=== PATIENT | male | born 1955 | race Caucasian/White ===

== ENCOUNTER 2016-08-13 10:55 | Emergency (ER) | payer OTHER ==
[~2016-08-13] VITALS: Ht 180.3 cm; Wt 90.7 kg
[2016-08-13 11:04] VITALS: BP 140/83
--- NOTE | 2016-08-13 11:07 | ED CARDIAC/CP/PALPITATIONS ---
History of Present Illness General Chief Complaint: Chest Pain Stated Complaint: CP Source: patient, family, old records Exam Limitations: no limitations Vital Signs & Intake/Output Vital Signs & Intake/Output Vital Signs Date Time Temp Pulse Resp B/P B/P Pulse O2 O2 Flow FiO2 Mean Ox Delivery Rate 08/13 1108 99 Room Air 08/13 1104 97.8 61 15 140/83 98 Room Air Room Air Allergies Coded Allergies: No Known Allergies (08/13/16) Triage Note: PT TO ED FOR DISCOMFORT IN CHEST THAT HAS BEEN INTERMITTENT PRESSURE AND TINGLING IN R CHEST WALL, WORSE TODAY THAN USUAL. ALSO REPORTS R SIDE SINUS ISSUES. DENIES SOB. NO ACUTE DISTRESS NOTED. Triage Nurses Notes Reviewed? yes HPI: Patient presents with intermittent chest pain that is had for the past few days. Patient states that he gets this shocklike sensation just to the right of his sternum that lasts a few seconds and then goes away. He told his about it this morning so she wanted to get him evaluated. Patient denies any radiation. There are no aggravating or mitigating factors. When he has this sensation when he rates it as a 3 out of 10. When it goes away it is a 0 out of 10. Past History Travel History Traveled to [place] past 21 day No Medical History Any Pertinent Medical History? see below for history Gastrointestinal: GERD Musculoskeletal: ARTHRITIS Blood Disorders: NONE Cancer(s): [employer]/Reproductive: NONE Surgical History Surgical History: non-contributory Psychosocial History What is your primary language Telugu Tobacco Use: Quit >30 days ago ETOH Use: occasional use Illicit Drug Use: denies illicit drug use Family History Hx Contributory? No Review of Systems Review of Systems Constitutional: Reports: no symptoms. EENTM: Reports: see HPI, nasal congestion. Respiratory: Reports: no symptoms. Cardiovascular: Reports: see HPI, chest pain. GI: Reports: no symptoms. Genitourinary: Reports: no symptoms. Musculoskeletal: Reports: no symptoms. Skin: Reports: no symptoms. Neurological/Psychological: Reports: no symptoms. Hematologic/Endocrine: Reports: no symptoms. Immunologic/Allergic: Reports: no symptoms. All Other Systems: Reviewed and Negative Physical Exam Physical Exam General Appearance: well developed/nourished, alert, awake, anxious, mild distress Head: atraumatic, normal appearance Eyes: Bilateral: PERRL, EOMI. Ears, Nose, Throat: normal pharynx, normal ENT inspection, hearing grossly normal Neck: normal inspection, supple, full range of motion Respiratory: normal breath sounds, chest non-tender, no respiratory distress, lungs clear Cardiovascular: regular rate/rhythm, normal peripheral pulses Gastrointestinal: normal bowel sounds, soft, non-tender Back: normal inspection Extremities: normal inspection, normal capillary refill, normal range of motion, no edema Neurologic/Psych: no motor/sensory deficits, awake, alert, oriented x 3, normal gait, normal mood/affect Skin: intact, normal color, warm/dry Core Measures ACS in differential dx? Yes ASA ordered for poss ACS? No-ACS ruled out Severe Sepsis Present: No Septic Shock Present: No All Positive = PERC Ruled Out: Positive: heart rate < 100 bpm, O2 sat > 94%, no hemoptysis, no hormone use, no prior DVT or PE, no unilateral leg swellin, no surgery/trauma w/in 4w. Negative : age < 50 years. Wells Criteria Score: 1 Progress Differential Diagnosis: AMI, aortic dissection, cholecystitis, costochondritis, pneumonia, pneumothorax, pulmonary embolism Plan of Care: Orders Procedure Date/time Status Telemetry/Patient Financial Services Coordinator 08/13 1107 Active TROPONIN LEVEL 08/13 1107 Complete COMPREHENSIVE METABOLIC PANEL 08/13 1107 Complete CBC WITHOUT DIFFERENTIAL 08/13 1107 Complete EKG 08/13 1057 Active Laboratory Tests 08/13/16 1110: Anion Gap 9, Estimated GFR > 60, BUN/Creatinine Ratio 40.0 H, Glucose 83, Calcium 9.0, Total Bilirubin 0.9, AST 24, ALT 56, Alkaline Phosphatase 59, Troponin I < 0.01, Total Protein 7.0, Albumin 4.5, Globulin 2.5, Albumin/ Globulin Ratio 1.8, CBC w Diff NO MAN DIFF REQ, RBC 5.10, MCV 91.1, MCH 31.5 H, RDW 12.8, MPV 7.1 L, Gran % 49.9, Lymphocytes % 39.7, Monocytes % 7.4, Eosinophils % 2.7, Basophils % 0.3, Absolute Granulocytes 2.9, Absolute Lymphocytes 2.3, Absolute Monocytes 0.4, Absolute Eosinophils 0.2, Absolute Basophils 0, PUBS MCHC 34.5 Initial ED EKG: NSR, no ST T wave changes Rhythm Strip: normal sinus rhythm Comments: LABS REVIEWED WITH PATIENT, QUESTIONS HAVE BEEN ANSWERED. Departure Departure Disposition: HOME OR SELF CARE Condition: Stable Clinical Impression Primary Impression: Chest pain, unspecified Qualifiers: Chest pain type: other chest pain Qualified Code: R07.89 - Other chest pain Referrals: SEAN LUA,DAT Stephens Additional Instructions: RETURN FOR ANY CONCERNS Departure Forms: Customer Survey General Discharge Information Critical Care Note Critical Care Note Critical Care Time: non-applicable
[2016-08-13 11:34] LABS: ABSOLUTE BASOPHIL COUNT 0 /CUMM (0.0-0.2); ABSOLUTE EOSINOPHIL COUNT 0.2 /CUMM (0.0-0.7); ABSOLUTE GRANULOCYTE CT 2.9 /CUMM (1.4-6.5); ABSOLUTE LYMPH COUNT 2.3 /CUMM (1.2-3.4); ABSOLUTE MONOCYTE COUNT 0.4 /CUMM (0.10-0.60); BASOPHIL % 0.3 % (0.0-2.0); EOSINOPHIL % 2.7 % (0-5); GRANULOCYTE % 49.9 % (42.2-75.2); HEMATOCRIT 46.4 % (42-52); MEAN CORPUSCULAR HGB 31.5 PG (27.0-31.0); MEAN CORPUSCULAR HGB CONC 34.5 G/DL (33.0-37.0); MEAN CORPUSCULAR VOLUME 91.1 FL (80.0-94.0); MEAN PLATELET VOLUME 7.1 FL (7.4-10.4); PLATELET COUNT 228 /CUMM (130-400); RBC DISTRIBUTION WIDTH 12.8 % (11.5-14.5); WHITE BLOOD CELL COUNT 5.9 /CUMM (4.8-10.8)
== END 2016-08-13 13:03 ==
LOC: ERH 10:55
PROVIDERS: Emergency Medicine
DX: R07.9 Chest pain, unspecified (principal)
CPT/HCPCS: 93005; 93010